=== PATIENT | female | born 1935 | race Caucasian/White ===

== ENCOUNTER 2017-05-20 10:26 | Emergency (ER) | payer OTHER ==
[2017-05-20 13:24] VITALS: BP 158/78
== END 2017-05-20 13:25 | disposition home or self-care (01) ==
LOC: ED 10:26
DX: S22.32XA Fracture of one rib, left side, initial encounter for closed fracture (principal); I10 Essential (primary) hypertension; J18.9 Pneumonia, unspecified organism; M79.662 Pain in left lower leg; M79.661 Pain in right lower leg; Z88.5 Allergy status to narcotic agent; Z88.8 Allergy status to other drugs, medicaments and biological substances; V49.49XA Driver injured in collision with other motor vehicles in traffic accident, initial encounter; W22.10XA Striking against or struck by unspecified automobile airbag, initial encounter; Y93.89 Activity, other specified; Y99.8 Other external cause status; Y92.89 Other specified places as the place of occurrence of the external cause
CPT/HCPCS: 94150; J1885